=== PATIENT | female | born 1985 | race Two or more races ===

== ENCOUNTER 2021-01-22 11:28 | Emergency (ER) | payer SELFPAY ==
[~2021-01-22] VITALS: Ht 160 cm; Wt 48.1 kg
--- NOTE | 2021-01-22 11:45 | NUR ---
Pt had forward mechanical fall, abrased left knee and left palm. Pt states afterwards, she started feeling flu-like s/s: general weakness, chills, dizziness, nausea and diarrhea. Pt denies cough, SOB, CP, no distress noted.
[2021-01-22 12:20] LABS: HEMATOCRIT 25.8 % (31.2-41.9); MEAN CORPUSCULAR HEMOGLOBIN 19.4 uug (24.7-32.8); PLATELET COUNT (AUTO) 414 K/uL (179-408)
[2021-01-22] MEDS: ONDANSETRON ODT 4 MG TAB.RAPDIS SL ONE (12:20)
[2021-01-22 12:24] LABS: *BILIRUBIN,URIN NEGATIVE (NEGATIVE); *BLOOD, URINE 2+ (NEGATIVE); *CLARITY,URINE CLEAR (CLEAR); *COLOR,URINE YELLOW (YELLOW); *KETONES,URINE TRACE (NEGATIVE); *URINE HCG, QUAL NEG (NEGATIVE); *UROBILINOGEN,URINE 0.2 E.U./dl (NORMAL); LEUKOCYTE ESTERASE ,URINE NEGATIVE (NEGATIVE); NITRITE, URINE NEGATIVE (NEGATIVE); UGLUCOSE NEGATIVE (NEGATIVE)
[2021-01-22] MEDS ORDERED: ONDANSETRON ODT 4 MG TAB.RAPDIS ONE (12:26)
[2021-01-22 12:27] LABS: CREATININE 0.7 mg/dL (0.6-1.3); POTASSIUM 4.2 mmol/L (3.5-5.1)
[2021-01-22 12:32] LABS: BILIRUBIN,TOTAL 0.3 mg/dL (0.2-1.0)
--- NOTE | 2021-01-22 13:41 | NUR ---
Pt Given d/c instructions, pt verbalized understanding.
[2021-01-22 14:18] LABS: LYMPHOCYTES % (MANUAL) 15 % (20-40); MONOCYTES % (MANUAL) 13 % (2-10); NEUTROPHILS % (MANUAL) 72 % (42-75)
[2021-01-22 14:25] LABS: WBC,URINE 0-3 /HPF (0-3)
[2021-01-22 14:26] LABS: BACTERIA,URINE FEW /HPF (NONE SEEN); SQUAMOUS EPITHELIAL CELL,UR FEW /HPF (NONE SEEN); URINE AMORPHOUS PHOSPHATES FEW /HPF
== END 2021-01-22 13:45 | disposition home or self-care (01) ==
LOC: ER 11:28
DX: U07.1 COVID-19 (principal); D64.9 Anemia, unspecified; D25.9 Leiomyoma of uterus, unspecified
CPT/HCPCS: 36415; 70030-TC; 84703; 85025; 93005; A4663; Q0162

== ENCOUNTER 2021-08-06 15:13 | Emergency (ER) | payer OTHER ==
[~2021-08-06] VITALS: Ht 160 cm; Wt 49.0 kg
[2021-08-06] MEDS ORDERED: IRON (16:15)
--- NOTE | 2021-08-06 16:47 | NUR ---
covid test done. took specimen to lab
[2021-08-06 17:00] LABS: HEMATOCRIT 41.4 % (31.2-41.9); MEAN CORPUSCULAR HEMOGLOBIN 29.7 uug (24.7-32.8); MEAN CORPUSCULAR VOLUME 89.1 fL (75.5-95.3); PLATELET COUNT (AUTO) 328 K/uL (179-408)
[2021-08-06 17:01] LABS: *URINE HCG, QUAL NEGATIVE (NEGATIVE)
[2021-08-06 17:08] LABS: CREATININE 0.7 mg/dL (0.6-1.3); POTASSIUM 4.1 mmol/L (3.5-5.1)
[2021-08-06 17:19] LABS: BILIRUBIN,DIRECT 0.2 mg/dL (0.0-0.2); BILIRUBIN,TOTAL 0.4 mg/dL (0.2-1.0); TOTAL PROTEIN, SERUM 7.4 g/dL (6.4-8.2)
[2021-08-06 18:17] VITALS: BP 112/70
--- NOTE | 2021-08-06 18:17 | NUR ---
Patient discharged to home in stable condition. Written and verbal after care instructions given. Patient verbalizes understanding of instructions. Stressed follow up or return to ER for worsening s/s.
== END 2021-08-06 18:18 | disposition home or self-care (01) ==
LOC: ER 15:21
DX: R11.0 Nausea (principal); Z20.822 Contact with and (suspected) exposure to COVID-19
CPT/HCPCS: 36415; 84703; 85025; A4663